=== PATIENT | female | born 1990 | race African-American/Black ===

== ENCOUNTER 2018-03-04 09:15 | Emergency (ER) | payer OTHER ==
[2018-03-04 09:35] LABS: Bilirubin Small (Negative); Blood, Urine Negative (Negative); Glucose, Urine (Dipstick) Negative (Negative); Leukocyte Negative (Negative); Nitrite Negative (Negative); Protein, Urine (Dipstick) Trace mg/dL (Neg-Trace)
[2018-03-04 09:37] LABS: Clarity Clear (Clear); Pregnancy Test - Urine (BHCG) Negative (Negative); Pregu Control Background? CLEAR/WHITE (CLR/WHITE); Pregu Control Bar Appear? YES (CONTROL BAR); Specific Gravity 1.033 (1.002-1.036); Specific Gravity, Urine 1.033 (1.002-1.036)
== END 2018-03-04 10:00 | disposition home or self-care (01) ==
LOC: ERS 09:15
DX: M54.5 Low back pain (principal); F17.210 Nicotine dependence, cigarettes, uncomplicated
CPT/HCPCS: 81003; 81025; 99283

== ENCOUNTER 2018-05-14 13:48 | Emergency (ER) | payer SELFPAY ==
--- NOTE | 2018-05-14 14:47 | RAD ---
TWO VIEWS CHEST: Comparison: None. History: Chest injury, chest pain. FINDINGS: Two views of the chest show normal sized cardiomediastinal silhouette. There is no evidence of consol idation, mass, or pleural effusion. The bones are unremarkable. IMPRESSION: No evidence of acute cardiopulmonary disease. POS: [facility]
--- NOTE | 2018-05-14 14:48 | RAD ---
THREE VIEWS LEFT SHOULDER: Comparison: None. History: Left shoulder injury with left shoulder pain. FINDINGS: Three views of the left shoulder shows no evidence of acute fracture or dislocation. No soft tissue s welling is seen. No degenerative changes are present. IMPRESSION: Unremarkable exam. POS: [id number]
[2018-05-14] MEDS ORDERED: Adacel (T-DAP) 0.5 ML VIAL ONE (14:57)
== END 2018-05-14 15:42 | disposition home or self-care (01) ==
LOC: ERS 13:48
DX: S41.012A Laceration without foreign body of left shoulder, initial encounter (principal); F17.210 Nicotine dependence, cigarettes, uncomplicated; W26.0XXA Contact with knife, initial encounter
CPT/HCPCS: 12001; 71046; 90715